=== PATIENT | female | born 1950 | race Caucasian/White ===

== ENCOUNTER 2024-03-03 16:17 | Emergency (ER) | payer MEDICAID, MEDICARE, OTHER ==
[~2024-03-03] VITALS: Ht 160 cm; Wt 55.9 kg
[2024-03-03 17:44] LABS: BASO # 0.1 10^3/uL (0.0-0.2); BASO % 0.3 % (0.0-1.0); EOS # 0.3 10^3/uL (0.0-0.5); EOS % 1.4 % (0.0-3.0); HEMATOCRIT 31.8 % (36.0-47.0); LYMPH # 1.6 10^3/uL (1.5-5.0); LYMPH % 6.4 % (24.0-44.0); MEAN CORPUSCULAR HEMOGLOBIN 27.9 pg (27.0-33.0); MEAN CORPUSCULAR HGB CONC 31.4 g/dl (32.0-36.5); MEAN CORPUSCULAR VOLUME 88.6 fl (80.0-96.0); MONO # 1.8 10^3/uL (0.0-0.8); MONO % 7.2 % (2.0-8.0); NEUTROPHILS # 20.3 10^3/uL (1.5-8.5); NEUTROPHILS % 83.6 % (36.0-66.0); PLATELET COUNT, AUTOMATED 436 10^3/uL (150-450); RED BLOOD COUNT 3.59 10^6/uL (4.00-5.40); WHITE BLOOD COUNT 24.2 10^3/uL (4.0-10.0)
[2024-03-03 18:06] LABS: C REACTIVE PROTEIN QUANTITATIV 19.44 MG/DL (<1.0)
[2024-03-03 18:07] LABS: BLOOD UREA NITROGEN 14 MG/DL (9-23); CALCIUM LEVEL 8.9 MG/DL (8.3-10.6); CARBON DIOXIDE LEVEL 23 MMOL/L (20-31); CHLORIDE LEVEL 97 MMOL/L (98-107); CREATININE FOR GFR 0.45 MG/DL (0.55-1.30); GLOMERULAR FILTRATION RATE > 60.0 (>39); GLUCOSE, FASTING 113 MG/DL (74-106); POTASSIUM SERUM 4.4 MMOL/L (3.5-5.1); SODIUM LEVEL 130 MMOL/L (136-145)
[2024-03-03] MEDS: NS (Normal Saline) 0.9% 1,000 ML IV ONE (20:14)
[2024-03-03] MEDS: PIPERACILLIN/TAZOBACTAM SOD 3.375 GM in DEXTROSE 5% (D5W) ADV/MINI-BAG 50 ML IV STA (20:14)
[2024-03-03 20:50] LABS: KETONE, URINE AUTO RFX TRACE mg/dL (NEGATIVE); LEUKOCYTE ESTERASE UR AUTO RFX NEGATIVE (NEGATIVE); MUCUS, URINE RFX SMALL (NEGATIVE); NITRITE, URINE AUTO RFX NEGATIVE (NEGATIVE); RBC, URINE AUTO RFX 0 /HPF (0-3); SQUAM EPITHELIAL CELL UR AURFX 2 /HPF (0-6); WBC, URINE AUTO RFX 0 /HPF (0-3)
[2024-03-03] MEDS ORDERED: OXYC7.5T3 PO (21:49)
[2024-03-03] MEDS ORDERED: CIPR-249 PO (21:52)
[2024-03-03] MEDS ORDERED: METR-265 PO (21:52)
[2024-03-03] MEDS: OXYCODONE/APAP 5MG/325MG(HOME DOSE PACK) PO ONE (22:34)
[2024-03-03 22:43] VITALS: BP 115/56; TEMP 98.9; O2SAT 97
== END 2024-03-03 22:48 | disposition home or self-care (01) ==
LOC: M ED 16:17
DX: C18.9 Malignant neoplasm of colon, unspecified (principal); F17.200 Nicotine dependence, unspecified, uncomplicated; Z88.6 Allergy status to analgesic agent; Z88.8 Allergy status to other drugs, medicaments and biological substances; Z79.2 Long term (current) use of antibiotics; Z79.899 Other long term (current) drug therapy; Z53.9 Procedure and treatment not carried out, unspecified reason
CPT/HCPCS: 74176; 80048; 81001; 83605; 85025; 85652; 86140; 87040; 87486; 87581; 87633; 87798; 96365; 96366; 99284; J2543

== ENCOUNTER 2024-03-05 14:03 | Inpatient (IN) | payer MEDICARE ==
[~2024-03-05] VITALS: Ht 160 cm; Wt 55.9 kg
[~2024-03-05 14:03] MED LIST: CIPR-249 PO; METR-265 PO; OXYC7.5T3 PO
[2024-03-05] MEDS ORDERED: ISOVUE-370 76% 100ML VIAL As Ordered ONE (15:19)
[2024-03-05] MEDS: NS (Normal Saline) 0.9% 1,000 ML IV ONE (15:20)
[2024-03-05 15:36] LABS: BASO # 0.1 10^3/uL (0.0-0.2); BASO % 0.4 % (0.0-1.0); EOS # 0.1 10^3/uL (0.0-0.5); EOS % 0.2 % (0.0-3.0); HEMATOCRIT 28.1 % (36.0-47.0); HEMOGLOBIN 9.1 g/dl (12.0-15.5); LYMPH # 1.8 10^3/uL (1.5-5.0); MEAN CORPUSCULAR HEMOGLOBIN 27.5 pg (27.0-33.0); MEAN CORPUSCULAR HGB CONC 32.4 g/dl (32.0-36.5); MEAN CORPUSCULAR VOLUME 84.9 fl (80.0-96.0); MONO # 1.8 10^3/uL (0.0-0.8); MONO % 8.1 % (2.0-8.0); NEUTROPHILS # 18.3 10^3/uL (1.5-8.5); PLATELET COUNT, AUTOMATED 575 10^3/uL (150-450); RED BLOOD COUNT 3.31 10^6/uL (4.00-5.40); WHITE BLOOD COUNT 22.3 10^3/uL (4.0-10.0)
[2024-03-05 15:48] LABS: INR 1.11; PARTIAL THROMBOPLASTIN TIME 24.6 SECONDS (24.8-34.2); PROTHROMBIN TIME 14.6 SECONDS (12.5-14.5)
[2024-03-05] MEDS: PIPERACILLIN/TAZOBACTAM SOD 4.5 GM in DEXTROSE 5% (D5W) ADV/MINI-BAG 50 ML IV ONE (15:54)
[2024-03-05 16:03] LABS: LIPASE 33 U/L (12-53)
[2024-03-05 16:05] LABS: ALBUMIN 2.2 G/DL (3.2-5.2); ALKALINE PHOSPHATASE 104 U/L (35-104); ALT/SGPT 25 U/L (7.0-40); AMYLASE 28 U/L (30-118); AST/SGOT 37 U/L (<34); BILIRUBIN,DIRECT 0.1 MG/DL (<0.4); BILIRUBIN,TOTAL 0.3 MG/DL (0.3-1.2); BLOOD UREA NITROGEN 13 MG/DL (9-23); CALCIUM LEVEL 8.8 MG/DL (8.3-10.6); CARBON DIOXIDE LEVEL 29 MMOL/L (20-31); CHLORIDE LEVEL 96 MMOL/L (98-107); CREATININE FOR GFR 0.42 MG/DL (0.55-1.30); GLOMERULAR FILTRATION RATE > 60.0 (>39); GLUCOSE, FASTING 111 MG/DL (74-106); POTASSIUM SERUM 4.1 MMOL/L (3.5-5.1); SODIUM LEVEL 132 MMOL/L (136-145); TOTAL PROTEIN 6.8 G/DL (5.7-8.2)
[2024-03-05] MEDS ORDERED: LIDOCAINE 1% MDV 20ML VIAL As Ordered ONE (16:28)
[2024-03-05] MEDS ORDERED: METR-265 PO (17:25)
[2024-03-05] MEDS ORDERED: HOME MED LIST COMPLETE! XX SCH (17:25)
[2024-03-05] MEDS ORDERED: OXYC7.5T3 PO (17:25)
[2024-03-05] MEDS ORDERED: CIPR500T39 PO (17:25)
[2024-03-05] MEDS ORDERED: MAALOX 30 ML SUSP *UDC PO PRN (20:25)
[2024-03-05] MEDS ORDERED: ACETAMINOPHEN 325 MG TAB PO PRN (20:25)
[2024-03-05] MEDS ORDERED: MOM 30ML SUSPENSION UDC PO PRN (20:25)
[2024-03-05] MEDS: DOCUSATE SODIUM 100MG CAPSULE PO SCH (21:05)
[2024-03-05] MEDS: CEFEPIME HCL 2 GM in D5W 50 ML IV SCH (21:06)
[2024-03-05 22:00] VITALS: BP 101/45; TEMP 97.5; O2SAT 90
[2024-03-06] VITALS (7 sets, daily range): BP systolic 105–129; BP diastolic 46–61; TEMP 96.6–97.9; O2SAT 90–96
[2024-03-06] MEDS: HEPARIN SOD (PORCINE) 5000UNITS/ML 1ML VIAL/SYRINGE SC SCH (06:27)
[2024-03-06 07:41] LABS: HEMATOCRIT 25.7 % (36.0-47.0); HEMOGLOBIN 8.3 g/dl (12.0-15.5); MEAN CORPUSCULAR HEMOGLOBIN 27.2 pg (27.0-33.0); MEAN CORPUSCULAR HGB CONC 32.3 g/dl (32.0-36.5); MEAN CORPUSCULAR VOLUME 84.3 fl (80.0-96.0); PLATELET COUNT, AUTOMATED 536 10^3/uL (150-450); RED BLOOD COUNT 3.05 10^6/uL (4.00-5.40); WHITE BLOOD COUNT 17.4 10^3/uL (4.0-10.0)
[2024-03-06 08:08] LABS: ALBUMIN 1.7 G/DL (3.2-5.2); ALKALINE PHOSPHATASE 80 U/L (35-104); ALT/SGPT 18 U/L (7.0-40); AST/SGOT 21 U/L (<34); BILIRUBIN,TOTAL 0.3 MG/DL (0.3-1.2); BLOOD UREA NITROGEN 9 MG/DL (9-23); CALCIUM LEVEL 8.9 MG/DL (8.3-10.6); CARBON DIOXIDE LEVEL 29 MMOL/L (20-31); CHLORIDE LEVEL 101 MMOL/L (98-107); CREATININE FOR GFR 0.37 MG/DL (0.55-1.30); GLOMERULAR FILTRATION RATE > 60.0 (>39); GLUCOSE, FASTING 98 MG/DL (74-106); MAGNESIUM LEVEL 1.9 MG/DL (1.8-2.4); SODIUM LEVEL 132 MMOL/L (136-145); TOTAL PROTEIN 5.9 G/DL (5.7-8.2)
[2024-03-07] VITALS (8 sets, daily range): BP systolic 110–126; BP diastolic 53–71; TEMP 97.1–98.2; O2SAT 90–95
[2024-03-07 06:44] LABS: BASO # 0.1 10^3/uL (0.0-0.2); BASO % 0.6 % (0.0-1.0); EOS # 0.2 10^3/uL (0.0-0.5); EOS % 1.5 % (0.0-3.0); HEMATOCRIT 26.5 % (36.0-47.0); HEMOGLOBIN 8.5 g/dl (12.0-15.5); LYMPH # 2.1 10^3/uL (1.5-5.0); LYMPH % 13.3 % (24.0-44.0); MEAN CORPUSCULAR HGB CONC 32.1 g/dl (32.0-36.5); MEAN CORPUSCULAR VOLUME 84.1 fl (80.0-96.0); MONO # 1.5 10^3/uL (0.0-0.8); MONO % 9.8 % (2.0-8.0); NEUTROPHILS # 11.6 10^3/uL (1.5-8.5); NEUTROPHILS % 73.7 % (36.0-66.0); PLATELET COUNT, AUTOMATED 519 10^3/uL (150-450); RED BLOOD COUNT 3.15 10^6/uL (4.00-5.40); WHITE BLOOD COUNT 15.8 10^3/uL (4.0-10.0)
[2024-03-07 07:17] LABS: C REACTIVE PROTEIN QUANTITATIV 11.48 MG/DL (<1.0)
[2024-03-07 08:27] LABS: ALBUMIN 1.8 G/DL (3.2-5.2); ALKALINE PHOSPHATASE 78 U/L (35-104); ALT/SGPT 19 U/L (7.0-40); AST/SGOT 25 U/L (<34); BILIRUBIN,TOTAL 0.3 MG/DL (0.3-1.2); BLOOD UREA NITROGEN 10 MG/DL (9-23); CALCIUM LEVEL 8.7 MG/DL (8.3-10.6); CARBON DIOXIDE LEVEL 29 MMOL/L (20-31); CHLORIDE LEVEL 100 MMOL/L (98-107); CREATININE FOR GFR 0.36 MG/DL (0.55-1.30); GLOMERULAR FILTRATION RATE > 60.0 (>39); GLUCOSE, FASTING 97 MG/DL (74-106); POTASSIUM SERUM 4.2 MMOL/L (3.5-5.1); SODIUM LEVEL 133 MMOL/L (136-145); TOTAL PROTEIN 6.2 G/DL (5.7-8.2)
[2024-03-07] MEDS ORDERED: PIPERACILLIN/TAZOBACTAM SOD 4.5 GM in DEXTROSE 5% (D5W) ADV/MINI-BAG 50 ML IV SCH (13:00)
[2024-03-07] MEDS ORDERED: SODIUM CHLORIDE 0.9% INJ 10 ML SYR IV PRN (13:25)
[2024-03-07] MEDS: ERTAPENEM SODIUM 1 GM in NS MINI-BAG PLUS 50 ML IV SCH (13:57)
[2024-03-07] MEDS: SODIUM CHLORIDE 0.9% INJ 10 ML SYR IV SCH (16:36)
[2024-03-07 18:56] LABS: PROCALCITONIN 0.07 ng/ml
[2024-03-08 04:41] VITALS: BP 123/53; TEMP 97.7; O2SAT 92
[2024-03-08 06:12] LABS: BASO # 0.1 10^3/uL (0.0-0.2); BASO % 0.4 % (0.0-1.0); EOS # 0.3 10^3/uL (0.0-0.5); EOS % 1.6 % (0.0-3.0); LYMPH # 2.1 10^3/uL (1.5-5.0); LYMPH % 12.5 % (24.0-44.0); MEAN CORPUSCULAR HGB CONC 31.5 g/dl (32.0-36.5); MEAN CORPUSCULAR VOLUME 85.6 fl (80.0-96.0); MONO # 1.6 10^3/uL (0.0-0.8); MONO % 9.7 % (2.0-8.0); NEUTROPHILS # 12.2 10^3/uL (1.5-8.5); NEUTROPHILS % 74.4 % (36.0-66.0); PLATELET COUNT, AUTOMATED 678 10^3/uL (150-450); RED BLOOD COUNT 2.15 10^6/uL (4.00-5.40); WHITE BLOOD COUNT 16.4 10^3/uL (4.0-10.0)
[2024-03-08 06:13] LABS: C REACTIVE PROTEIN QUANTITATIV 10.79 MG/DL (<1.0)
[2024-03-08 06:14] LABS: ALBUMIN 1.9 G/DL (3.2-5.2); ALKALINE PHOSPHATASE 73 U/L (35-104); ALT/SGPT 21 U/L (7.0-40); AST/SGOT 24 U/L (<34); BILIRUBIN,TOTAL 0.3 MG/DL (0.3-1.2); BLOOD UREA NITROGEN 10 MG/DL (9-23); CALCIUM LEVEL 8.5 MG/DL (8.3-10.6); CARBON DIOXIDE LEVEL 30 MMOL/L (20-31); CHLORIDE LEVEL 98 MMOL/L (98-107); GLOMERULAR FILTRATION RATE > 60.0 (>39); GLUCOSE, FASTING 91 MG/DL (74-106); POTASSIUM SERUM 4.2 MMOL/L (3.5-5.1); SODIUM LEVEL 133 MMOL/L (136-145)
[2024-03-08 06:19] LABS: HEMATOCRIT 18.4 % (36.0-47.0)
[2024-03-08 06:21] LABS: HEMOGLOBIN 5.8 g/dl (12.0-15.5)
[2024-03-08 06:35] VITALS: BP 122/54; TEMP 97.9
[2024-03-08 06:48] LABS: BASO # 0.1 10^3/uL (0.0-0.2); BASO % 0.5 % (0.0-1.0); EOS # 0.2 10^3/uL (0.0-0.5); EOS % 1.5 % (0.0-3.0); HEMATOCRIT 27.4 % (36.0-47.0); LYMPH # 1.4 10^3/uL (1.5-5.0); LYMPH % 11.2 % (24.0-44.0); MEAN CORPUSCULAR HEMOGLOBIN 26.5 pg (27.0-33.0); MEAN CORPUSCULAR VOLUME 85.4 fl (80.0-96.0); MONO # 1.2 10^3/uL (0.0-0.8); MONO % 9.1 % (2.0-8.0); NEUTROPHILS # 9.8 10^3/uL (1.5-8.5); NEUTROPHILS % 76.1 % (36.0-66.0); RED BLOOD COUNT 3.21 10^6/uL (4.00-5.40); WHITE BLOOD COUNT 12.9 10^3/uL (4.0-10.0)
[2024-03-08 06:53] LABS: HEMOGLOBIN 8.5 g/dl (12.0-15.5); PLATELET COUNT, AUTOMATED 520 10^3/uL (150-450)
[2024-03-08 08:42] VITALS: BP 121/55; TEMP 98.1; O2SAT 95
[2024-03-08 11:39] VITALS: BP 125/61; TEMP 97.9; O2SAT 95
[2024-03-08 20:16] VITALS: BP 141/61; TEMP 98.8; O2SAT 92
[2024-03-09 00:03] VITALS: BP 117/60; TEMP 98.2; O2SAT 92
[2024-03-09 04:00] VITALS: BP 124/59; TEMP 97.9; O2SAT 92
[2024-03-09 06:19] LABS: BASO # 0.1 10^3/uL (0.0-0.2); BASO % 0.5 % (0.0-1.0); EOS % 0.1 % (0.0-3.0); HEMATOCRIT 28.6 % (36.0-47.0); HEMOGLOBIN 9.2 g/dl (12.0-15.5); LYMPH # 1.2 10^3/uL (1.5-5.0); LYMPH % 12.1 % (24.0-44.0); MEAN CORPUSCULAR HEMOGLOBIN 26.8 pg (27.0-33.0); MEAN CORPUSCULAR HGB CONC 32.2 g/dl (32.0-36.5); MEAN CORPUSCULAR VOLUME 83.4 fl (80.0-96.0); MONO # 1.5 10^3/uL (0.0-0.8); MONO % 15.3 % (2.0-8.0); NEUTROPHILS # 6.7 10^3/uL (1.5-8.5); NEUTROPHILS % 69.8 % (36.0-66.0); PLATELET COUNT, AUTOMATED 497 10^3/uL (150-450); RED BLOOD COUNT 3.43 10^6/uL (4.00-5.40); WHITE BLOOD COUNT 9.7 10^3/uL (4.0-10.0)
[2024-03-09 06:47] LABS: C REACTIVE PROTEIN QUANTITATIV 7.57 MG/DL (<1.0)
[2024-03-09 06:56] LABS: ALBUMIN 1.9 G/DL (3.2-5.2); ALKALINE PHOSPHATASE 75 U/L (35-104); ALT/SGPT 17 U/L (7.0-40); AST/SGOT 22 U/L (<34); BILIRUBIN,TOTAL 0.3 MG/DL (0.3-1.2); BLOOD UREA NITROGEN 10 MG/DL (9-23); CALCIUM LEVEL 9.2 MG/DL (8.3-10.6); CARBON DIOXIDE LEVEL 30 MMOL/L (20-31); CHLORIDE LEVEL 95 MMOL/L (98-107); CREATININE FOR GFR 0.42 MG/DL (0.55-1.30); GLOMERULAR FILTRATION RATE > 60.0 (>39); GLUCOSE, FASTING 95 MG/DL (74-106); POTASSIUM SERUM 4.3 MMOL/L (3.5-5.1); SODIUM LEVEL 128 MMOL/L (136-145); TOTAL PROTEIN 6.7 G/DL (5.7-8.2)
[2024-03-09 08:00] VITALS: BP 119/59; TEMP 97.7; O2SAT 95
[2024-03-09 12:00] VITALS: BP 116/53; TEMP 98.2; O2SAT 90
[2024-03-09 16:00] VITALS: BP 119/53; TEMP 97.7; O2SAT 93
[2024-03-09 20:32] VITALS: BP 119/53; TEMP 97.9; O2SAT 93
[2024-03-10] VITALS (8 sets, daily range): BP systolic 91–119; BP diastolic 39–56; TEMP 97.7–97.9; O2SAT 91–96
[2024-03-10 06:30] LABS: BASO # 0.1 10^3/uL (0.0-0.2); EOS % 0.2 % (0.0-3.0); HEMATOCRIT 41.8 % (36.0-47.0); LYMPH # 0.9 10^3/uL (1.5-5.0); LYMPH % 17.6 % (24.0-44.0); MEAN CORPUSCULAR HEMOGLOBIN 27.1 pg (27.0-33.0); MEAN CORPUSCULAR HGB CONC 32.3 g/dl (32.0-36.5); MEAN CORPUSCULAR VOLUME 83.8 fl (80.0-96.0); MONO # 0.8 10^3/uL (0.0-0.8); NEUTROPHILS # 3.3 10^3/uL (1.5-8.5); NEUTROPHILS % 64.6 % (36.0-66.0); RED BLOOD COUNT 4.99 10^6/uL (4.00-5.40); WHITE BLOOD COUNT 5.1 10^3/uL (4.0-10.0)
[2024-03-10 06:31] LABS: HEMOGLOBIN 13.5 g/dl (12.0-15.5); PLATELET COUNT, AUTOMATED 316 10^3/uL (150-450)
[2024-03-10 06:56] LABS: ALKALINE PHOSPHATASE 70 U/L (35-104); ALT/SGPT 16 U/L (7.0-40); AST/SGOT 23 U/L (<34); BILIRUBIN,TOTAL 0.2 MG/DL (0.3-1.2); BLOOD UREA NITROGEN 9 MG/DL (9-23); C REACTIVE PROTEIN QUANTITATIV 5.18 MG/DL (<1.0); CALCIUM LEVEL 8.9 MG/DL (8.3-10.6); CARBON DIOXIDE LEVEL 31 MMOL/L (20-31); CHLORIDE LEVEL 96 MMOL/L (98-107); CREATININE FOR GFR 0.41 MG/DL (0.55-1.30); GLOMERULAR FILTRATION RATE > 60.0 (>39); GLUCOSE, FASTING 93 MG/DL (74-106); POTASSIUM SERUM 4.3 MMOL/L (3.5-5.1); SODIUM LEVEL 131 MMOL/L (136-145); TOTAL PROTEIN 6.6 G/DL (5.7-8.2)
[2024-03-11] VITALS: BP 118/59; TEMP 97.9; O2SAT 93
[2024-03-11 04:00] VITALS: BP 115/56; TEMP 97.7; O2SAT 95
[2024-03-11 06:10] LABS: ALBUMIN 1.9 G/DL (3.2-5.2); ALKALINE PHOSPHATASE 67 U/L (35-104); ALT/SGPT 16 U/L (7.0-40); AST/SGOT 22 U/L (<34); BILIRUBIN,TOTAL 0.2 MG/DL (0.3-1.2); BLOOD UREA NITROGEN 13 MG/DL (9-23); CALCIUM LEVEL 8.9 MG/DL (8.3-10.6); CARBON DIOXIDE LEVEL 32 MMOL/L (20-31); CHLORIDE LEVEL 99 MMOL/L (98-107); CREATININE FOR GFR 0.46 MG/DL (0.55-1.30); GLOMERULAR FILTRATION RATE > 60.0 (>39); GLUCOSE, FASTING 92 MG/DL (74-106); POTASSIUM SERUM 4.4 MMOL/L (3.5-5.1); SODIUM LEVEL 133 MMOL/L (136-145); TOTAL PROTEIN 6.5 G/DL (5.7-8.2)
[2024-03-11 06:19] LABS: BASO # 0.1 10^3/uL (0.0-0.2); BASO % 0.7 % (0.0-1.0); EOS % 0.4 % (0.0-3.0); HEMATOCRIT 29.6 % (36.0-47.0); LYMPH # 1.8 10^3/uL (1.5-5.0); LYMPH % 26.4 % (24.0-44.0); MEAN CORPUSCULAR HEMOGLOBIN 26.6 pg (27.0-33.0); MEAN CORPUSCULAR HGB CONC 31.4 g/dl (32.0-36.5); MEAN CORPUSCULAR VOLUME 84.6 fl (80.0-96.0); MONO # 0.9 10^3/uL (0.0-0.8); NEUTROPHILS # 3.9 10^3/uL (1.5-8.5); NEUTROPHILS % 58.2 % (36.0-66.0); WHITE BLOOD COUNT 6.7 10^3/uL (4.0-10.0)
[2024-03-11 06:26] LABS: HEMOGLOBIN 9.3 g/dl (12.0-15.5); PLATELET COUNT, AUTOMATED 437 10^3/uL (150-450)
[2024-03-11 08:00] VITALS: BP 121/60; TEMP 97.5; O2SAT 94
[2024-03-11 12:00] VITALS: BP 109/79; TEMP 97.5; O2SAT 93
[2024-03-11 15:48] LABS: C REACTIVE PROTEIN QUANTITATIV 4.27 MG/DL (<1.0)
[2024-03-11 16:00] VITALS: BP 114/55; TEMP 98.2; O2SAT 94
[2024-03-11] MEDS ORDERED: CIPR-249 PO (19:18)
[2024-03-11] MEDS ORDERED: FLAG375C PO (19:19)
== END 2024-03-11 20:13 | disposition home or self-care (01) | DRG 871 ==
LOC: M ED 14:03 → EDBD 14:03 → M ED INP 20:21 → EEVIPCON 20:21 → M MS5PR 22:06
PROVIDERS: ADMIT Family Medicine; ATTEND Student in an Organized Health Care Education/Training Program
PROC: 0W9G3ZZ Drainage of Peritoneal Cavity, Percutaneous Approach (ICD-10-PCS; principal; 2024-03-06)
DX: A41.9 Sepsis, unspecified organism (principal); K65.1 Peritoneal abscess; K63.2 Fistula of intestine; E46 Unspecified protein-calorie malnutrition; C18.2 Malignant neoplasm of ascending colon; K57.92 Diverticulitis of intestine, part unspecified, without perforation or abscess without bleeding; Z88.6 Allergy status to analgesic agent; F17.200 Nicotine dependence, unspecified, uncomplicated; Z79.899 Other long term (current) drug therapy; D50.0 Iron deficiency anemia secondary to blood loss (chronic)

== ENCOUNTER → 2024-06-12 | Outpatient (CLI) | payer MEDICARE ==
[~2024-06-12] MED LIST changes: +CIPR500T39 PO; +FLAG375C PO
== END ==
LOC: M RAD 16:41
DX: C18.2 Malignant neoplasm of ascending colon (principal); K63.2 Fistula of intestine; K63.89 Other specified diseases of intestine; R91.8 Other nonspecific abnormal finding of lung field
CPT/HCPCS: 71260; 74177; Q9967

== ENCOUNTER → 2024-06-12 | Outpatient (CLI) | payer MEDICARE ==
[~2024-06-12] MED LIST changes: +ISOVUE-370 76% 100ML VIAL As Ordered ONE
== END ==
LOC: M RAD 16:52
PROVIDERS: ATTEND Surgery
DX: K63.2 Fistula of intestine (principal); K63.89 Other specified diseases of intestine

== ENCOUNTER → 2024-06-24 | Outpatient (CLI) | payer MEDICARE, MEDICAID ==
[~2024-06-24] MED LIST changes: -ISOVUE-370 76% 100ML VIAL As Ordered ONE
== END ==
LOC: M ONCR 12:45
PROVIDERS: ATTEND General Practice
DX: C18.2 Malignant neoplasm of ascending colon (principal); R91.8 Other nonspecific abnormal finding of lung field; Z15.09 Genetic susceptibility to other malignant neoplasm; F17.210 Nicotine dependence, cigarettes, uncomplicated; Z88.6 Allergy status to analgesic agent; Z88.8 Allergy status to other drugs, medicaments and biological substances; Z79.899 Other long term (current) drug therapy

== ENCOUNTER → 2024-07-02 | Outpatient (CLI) | payer MEDICARE, MEDICAID | LOC: M PLARAD 11:22 | PROVIDERS: ATTEND General Practice | DX: C18.2 Malignant neoplasm of ascending colon (principal) ==

== ENCOUNTER 2024-10-27 20:26 | Emergency (ER) | payer MEDICARE, MEDICAID ==
[~2024-10-27] VITALS: Ht 160 cm; Wt 43.7 kg
[~2024-10-27 20:26] MED LIST changes: +LEVO1TAB40 PO; +PROBCAP14 PO
[2024-10-27] MEDS: NS (Normal Saline) 0.9% 1,000 ML IV ONE (21:17)
[2024-10-27 21:39] LABS: BASO # 0.1 10^3/uL (0.0-0.2); BASO % 0.3 % (0.0-1.0); EOS # 0.0 10^3/uL (0.0-0.5); EOS % 0.0 % (0.0-3.0); LYMPH # 1.6 10^3/uL (1.5-5.0); LYMPH % 6.8 % (24.0-44.0); MONO # 0.8 10^3/uL (0.0-0.8); MONO % 3.4 % (2.0-8.0); NEUTROPHILS # 21.0 10^3/uL (1.5-8.5); NEUTROPHILS % 88.9 % (36.0-66.0); PLATELET COUNT, AUTOMATED 690 10^3/uL (150-450)
[2024-10-27] MEDS: CEFEPIME HCL 2 GM in DEXTROSE 5% (D5W) ADV/MINI-BAG 50 ML IV ONE (21:58)
[2024-10-27] MEDS: ONDANSETRON 4MG 2ML VIAL IV ONE (21:58)
[2024-10-27 22:11] LABS: ALT/SGPT 17 U/L (7.0-40); AST/SGOT 68 U/L (<34); CALCIUM LEVEL 10.4 MG/DL (8.3-10.6); CARBON DIOXIDE LEVEL 37 MMOL/L (20-31); CHLORIDE LEVEL 89 MMOL/L (98-107); CREATININE FOR GFR 0.37 MG/DL (0.55-1.30); GLOMERULAR FILTRATION RATE > 90.0 (>39); POTASSIUM SERUM 5.2 MMOL/L (3.5-5.1); SODIUM LEVEL 137 MMOL/L (136-145)
[2024-10-27] MEDS ORDERED: ISOVUE-370 76% 100 ML VIAL As Ordered ONE (22:22)
[2024-10-27] MEDS: VANCOMYCIN HCL 750 MG, VIAL MATE ADAPTER 1 EACH in NS 250 ML IV ONE (23:40)
[2024-10-27] MEDS: NS (Normal Saline) 0.9% 1,000 ML IV SCH (23:41)
[2024-10-28 01:00] VITALS: BP 115/57; TEMP 96.5; O2SAT 92
[2024-10-28] MEDS: ONDANSETRON 4MG 2ML VIAL IV ONE (01:06)
== END 2024-10-28 01:20 | disposition short-term general hospital (02) ==
LOC: M ED 20:26
DX: C18.2 Malignant neoplasm of ascending colon (principal); K55.049 Acute infarction of large intestine, extent unspecified; K63.2 Fistula of intestine; R59.1 Generalized enlarged lymph nodes; J98.11 Atelectasis; N94.89 Other specified conditions associated with female genital organs and menstrual cycle; J90 Pleural effusion, not elsewhere classified; K57.30 Diverticulosis of large intestine without perforation or abscess without bleeding; F32.A Depression, unspecified; F41.9 Anxiety disorder, unspecified; F17.200 Nicotine dependence, unspecified, uncomplicated; Z79.899 Other long term (current) drug therapy; Z88.6 Allergy status to analgesic agent; Z88.8 Allergy status to other drugs, medicaments and biological substances
CPT/HCPCS: 71045; 74177; 80048; 80076; 83605; 85025; 86850; 86900; 86901; 87040; 93005; 96365; 96366; 96375; 96376; 99285; J0692; J2405; J3373; Q9967